=== PATIENT | female | born 1960 | race Caucasian/White ===

== ENCOUNTER 2017-02-20 10:52 | Emergency (ER) | payer SELFPAY ==
[2017-02-20] MEDS ORDERED: Diphtheria,Pertussis(Acell),Tetanus Vaccine 0.5 ML SDV IM ONE (11:39)
--- NOTE | 2017-02-21 04:06 | ER ---
DATE SEEN: 02/20/2017 HISTORY OF PRESENT ILLNESS: This is a 56-year-old woman who was carrying a garbage out and there was a broken bottle in the bank of garbage and this lacerated her right mid lower lateral thigh. No loss of sensation. Tetanus is not up-to-date. Otherwise, the patient is healthy. No diabetes, heart disease, other serious illness, hospitalizations, or injuries. SOCIAL HISTORY: She is a nonsmoker. REVIEW OF SYSTEMS: Negative. PHYSICAL EXAMINATION: VITAL SIGNS: 135/91, heart rate 72, respirations 18, and oxygen saturation 99%. BMI 22.8 kg/m2. HEENT: Negative. LUNGS: Clear. HEART: Without abnormality. ABDOMEN: Soft. No masses. EXTREMITIES: Right lower extremity, mid lateral thigh, arcuate 10-cm laceration. PROCEDURE: Wound was cleansed by the nurse, then it was cleansed by myself taking the patient over to the sink with a surgical scrub brush, soft component, washing the entire length and then washed again, lavaged thoroughly, and then closed with interrupted inverted 4-0 Vicryl and interrupted 3-0 Ethilon. The patient tolerated the procedure well. There were 6 stitches interrupted 4-0 Ethilon and 6 stitches interrupted Vicryl. The patient to follow up with doctor immediately if any signs of infection, redness, swelling, or increased tenderness. Otherwise, follow up with doctor in 7 days. Sutures out in 14 days. DIAGNOSIS: Laceration, right lower extremity, 10 cm long, double layer closure. Also, the patient being dismissed. To use Keflex 500 mg q.i.d. for 7 days. If any sign of infection, redness, swelling, tenderness, or linear angiitis, see the doctor earlier. /[id number] ELEUTERIO/CONI
== END 2017-02-20 12:29 | disposition home or self-care (01) ==
LOC: FB.ED 10:52
DX: S71.111A Laceration without foreign body, right thigh, initial encounter (principal); W25.XXXA Contact with sharp glass, initial encounter; Z23 Encounter for immunization
CPT/HCPCS: 12034; 90471; 90715; 99283; A4217; 12002